=== PATIENT | female | born 1965 | race Hispanic/Latino ===

== ENCOUNTER → 2019-03-15 | Outpatient (CLI) | payer MEDICARE | END | disposition home or self-care (01) | LOC: SHCH 15:58 | PROVIDERS: ATTEND Internal Medicine Cardiovascular Disease | DX: R00.2 Palpitations (principal) | CPT/HCPCS: 93306 ==

== ENCOUNTER → 2019-04-19 | Outpatient (CLI) | payer MEDICARE | END | disposition home or self-care (01) | LOC: OIH 10:56 | PROVIDERS: ATTEND Internal Medicine | DX: M77.31 Calcaneal spur, right foot (principal); M06.4 Inflammatory polyarthropathy | CPT/HCPCS: 72100; 73630 ==

== ENCOUNTER → 2020-12-04 | Outpatient (CLI) | payer MEDICARE | END | disposition home or self-care (01) | LOC: RAH 09:58 | PROVIDERS: ATTEND Internal Medicine | DX: M19.072 Primary osteoarthritis, left ankle and foot (principal); M19.071 Primary osteoarthritis, right ankle and foot; M47.816 Spondylosis without myelopathy or radiculopathy, lumbar region; M24.874 Other specific joint derangements of right foot, not elsewhere classified; M24.875 Other specific joint derangements left foot, not elsewhere classified | CPT/HCPCS: 72100; 73630 ==

== ENCOUNTER → 2020-12-15 | Outpatient (CLI) | payer MEDICARE | END | disposition home or self-care (01) | LOC: SHCH 10:49 | PROVIDERS: ATTEND Internal Medicine Cardiovascular Disease | DX: I34.0 Nonrheumatic mitral (valve) insufficiency (principal); I51.7 Cardiomegaly; E78.5 Hyperlipidemia, unspecified; F17.210 Nicotine dependence, cigarettes, uncomplicated | CPT/HCPCS: 93306 ==

== ENCOUNTER → 2021-08-02 | Outpatient (CLI) | payer MEDICARE ==
[~2021-08-02] MED LIST: REGADENOSON 0.4 MG/5 ML PF SYG IVP SCH
[2021-08-02] MEDS: REGADENOSON 0.4 MG/5 ML PF SYG IVP SCH (10:22)
== END | disposition home or self-care (01) ==
LOC: SHCH 07-30 08:59
PROVIDERS: ATTEND Internal Medicine Cardiovascular Disease
DX: I45.10 Unspecified right bundle-branch block (principal); R06.09 Other forms of dyspnea
CPT/HCPCS: 78452; 93017; 96374; A9500 ×2; J2785

== ENCOUNTER → 2024-07-02 | Outpatient (CLI) | payer OTHER, MEDICARE | END | disposition home or self-care (01) | LOC: SHCH 12:09 | PROVIDERS: ATTEND Internal Medicine Cardiovascular Disease | DX: R01.1 Cardiac murmur, unspecified (principal) | CPT/HCPCS: 93306 ==

== ENCOUNTER → 2025-01-29 | Outpatient (CLI) | payer OTHER, MEDICARE ==
--- NOTE | 2025-01-30 05:29 | HMCIMG ---
EXAM: CR Lumbar Spine, 3 views. CLINICAL HISTORY: Pain. COMPARISON: None provided. FINDINGS: Straightening of lumbar spine is noted. L4-L5 and L5-S1 intervertebral disc heights are reduced. Osteophytic lipping of articular margin is noted. Generalized osteopenia is seen. Normal vertebral body heights. No acute fracture. Soft tissues are within normal limits. IMPRESSION: No acute fracture or dislocation. Mild lumbar spondylosis. /[place]
--- NOTE | 2025-01-30 05:38 | HMCIMG ---
EXAM: CR Left Foot, 3 views. CLINICAL HISTORY: Pain. COMPARISON: None provided. FINDINGS: Bony calcaneal spur is noted. No acute fracture or aggressive appearing osseous lesion. Joint spaces are within normal limits. The soft tissues are unremarkable. Soft tissue calcification is seen at calcaneal attachment of achilles tendon and plantar fascia. IMPRESSION: No fracture or dislocation in the left foot. Bony calcaneal spur is noted. The soft tissues are unremarkable. Soft tissue calcification is seen at calcaneal attachment of achilles tendon and plantar fascia. /[place]
--- NOTE | 2025-01-30 05:38 | HMCIMG ---
EXAM: CR Right Foot, 3 views. CLINICAL HISTORY: Pain. COMPARISON: None provided. FINDINGS: Bony calcaneal spur is noted. No acute fracture or aggressive appearing osseous lesion. Joint spaces are within normal limits. The soft tissues are unremarkable. Soft tissue calcification is seen at calcaneal attachment of achilles tendon and plantar fascia. IMPRESSION: No fracture or dislocation in the right foot. Bony calcaneal spur is noted. The soft tissues are unremarkable. Soft tissue calcification is seen at calcaneal attachment of achilles tendon and plantar fascia. /[place]
--- NOTE | 2025-01-30 05:58 | HMCIMG ---
EXAM: CR Pelvis and Left Hip, 3 views. CLINICAL HISTORY: Pain. COMPARISON: None provided. FINDINGS: No acute fracture or aggressive appearing osseous lesion. There are mild degenerative changes in the hips. The soft tissues are unremarkable. IMPRESSION: 1. No acute osseous abnormality. /[place]
== END | disposition home or self-care (01) ==
LOC: RAH 09:43
PROVIDERS: ATTEND Internal Medicine
DX: M16.12 Unilateral primary osteoarthritis, left hip (principal); M77.32 Calcaneal spur, left foot; M77.31 Calcaneal spur, right foot; M47.816 Spondylosis without myelopathy or radiculopathy, lumbar region; M51.370 Other intervertebral disc degeneration, lumbosacral region with discogenic back pain only; M25.78 Osteophyte, vertebrae; M79.672 Pain in left foot
CPT/HCPCS: 72100; 73502; 73630